=== PATIENT | female | born 1985 | race Caucasian/White ===

== ENCOUNTER 2025-05-06 14:00 | Emergency (ER) | payer BC, SELFPAY ==
[2025-05-06 14:08] VITALS: BP 131/84
[2025-05-06 14:09] VITALS: BMI 43.7
--- NOTE | 2025-05-06 15:01 | ED.GENMED ---
History of Present Illness
General
Chief Complaint: Rabies
Source: patient
Exam Limitations: none
Time Seen by Provider: 05/06/25 14:29
Nursing documentation reviewed up to this point in time: agreed with
History of Present Illness
History of Present Illness:
39 y/o F
h/o remote thyroid cancer, s/p thyroidectoy radiation
here after finding bat in house 4 nights ago
they have not located bat
called health department and were sent for rabies series
entire family here
no one symptomatic
no known exposure
Past History
Past History
ED Past Medical History: Cancer
ED Past Surgical History: Other (thyroidectomy)
Social History
Tobacco: Non-smoker
Alcohol: None
Drug: None
Personal:
Living: with family
Review of Systems
Review of Systems
Allergies reviewed?: Yes
All Other Systems: Not applicable
Phy Exam
Physical Exam
Physical Exam:
GENERAL: Alert , in no apparent distress
CARDIAC: Regular rate and rhythm .
LUNGS: Clear breath sounds bilaterally, no acute respiratory distress, no wheezes/rales/rhonchi
NEUROLOGICAL: Alert and oriented, no focal neuro deficits
PSYCH: Normal and appropriate interaction.
Course
Orders/Labs/Results
Orders:
Orders
05/06/25 14:55
Rabies Immune Globulin/Pf [HyperRAB] 2,684 unit IM NOW STA
05/06/25 15:00
Rabies Vaccine (Pcec)/Pf [Rabavert Rabies Vacc W-Diluent] 2.5 unit IM .ONCE ONE
Vital Signs
Initial and Last Documented VS:
Initial Vital Signs
Temp
36.9 C
05/06/25 14:06
Last Documented Vital Signs
Temp Pulse Resp BP Pulse Ox
36.9 C 84 18 131/84 95
05/06/25 14:06 05/06/25 14:08 05/06/25 14:08 05/06/25 14:08 05/06/25 15:07
MDM/Problems Addressed
Differential Diagnosis Includes:
rabies exposure
MDM/Problems Addressed:
39 y/o F
bat found in house
no known contact with bat
cdalled health department and insturcted to come for rabies series
no one symptomatic
*Pulse Oximetry
SaO2: 95
Oxygen Mode of Delivery: Room air
Patient hypoxic: no (95)
*Critical Care Note
Total Time (30-74mins, 75-104mins- exclusive of procedures): Not Applicable
ED Attending Note
-
Portions of this chart may have been created with voice recognition software.� Occasional wrong word or��sound alike� substitutions may have occurred due to the inherent limitations of voice recognition software.
Discharge Plan
Departure
Patient Disposition: Home (Routine Discharge)
Date of Disposition: 05/06/25
Time of Disposition: 15:05
Patient with high blood pressure during this ER visit?: No
Condition: Fair
Covid-19: Not Applicable
Discharge Problem:
Need for post exposure prophylaxis for rabies
Instructions: Rabies Vaccine CDC Vaccine Information Statement (VIS)
Prescriptions:
New
rabies vacc,human diploid (PF) 2.5 unit recon soln
See Rx Instructions .ROUTE .COMPLEX Qty: 3 0RF
Rx Instructions:
2.5 unit intramuscularly on 05/09, 05/13, 05/20
Referrals:
Lizette Torres CRNP [Family Provider, Family Practice]
Stand Alone Forms: Rabies Vaccine Post Exp Dosing
Activity Restrictions/Additional Instructions:
RABIES SERIES WAS INITIATED
RETURN ON DATES 05/09 TO THE ER
OTHER DATES 05/13, 05/20 CAN BE AT THE [facility]
Interventions
Interventions:
*Risk Screen - Suicide Last Done: 05/06/25 14:06
*General Assessment Last Done: 05/06/25 14:06
Discharge Date and Time
Print Language: UPPER SORBIAN
[2025-05-06] MEDS: RABAVERT RABIES VACC W-DILUENT 2.5 UNIT IM (15:41)
== END 2025-05-06 16:50 | disposition home or self-care (01) ==
LOC: EMR 14:00
PROVIDERS: EMERGENCY PHYSICIAN Student in an Organized Health Care Education/Training Program; FAMILY PHYSICIAN Registered Nurse
DX: Z23 Encounter for immunization (principal); Z20.3 Contact with and (suspected) exposure to rabies; Z29.14 Encounter for prophylactic rabies immune globulin; Z85.850 Personal history of malignant neoplasm of thyroid; Z92.3 Personal history of irradiation
CPT/HCPCS: 99281; 90471; 96372; 90375; 90675

== ENCOUNTER 2025-05-09 09:46 | Emergency (ER) | payer BC, SELFPAY ==
[2025-05-09 09:55] VITALS: BP 129/86
--- NOTE | 2025-05-09 10:15 | ED.GENMED ---
History of Present Illness
General
Chief Complaint: Rabies
Source: patient
Exam Limitations: none
Time Seen by Provider: 05/09/25 09:59
Nursing documentation reviewed up to this point in time: agreed with
History of Present Illness
History of Present Illness:
39 y/o F
here for 2nd rabies vaccine
found bat in the house
no side effects from first shot
feeling well
denies fever, neck pain, headache
Past History
Past History
ED Past Medical History: Cancer
ED Past Surgical History: Other (thyroidectomy)
Social History
Tobacco: Non-smoker
Alcohol: None
Drug: None
Personal:
Living: with family
Review of Systems
Review of Systems
Allergies reviewed?: Yes
All Other Systems: Not applicable
Phy Exam
Physical Exam
Physical Exam:
GENERAL: Alert , in no apparent distress
CARDIAC: Regular rate and rhythm .
LUNGS: Clear breath sounds bilaterally, no acute respiratory distress, no wheezes/rales/rhonchi
SKIN: Warm and dry, skin intact.
neuro: no deficits
PSYCH: Normal and appropriate interaction.
Course
Orders/Labs/Results
Orders:
Orders
05/09/25 10:15
Rabies Vaccine (Pcec)/Pf [Rabavert Rabies Vacc W-Diluent] 2.5 unit IM .ONCE ONE
Vital Signs
Initial and Last Documented VS:
Initial Vital Signs
Temp Pulse Resp BP Pulse Ox
36.9 C 84 16 129/86 97
05/09/25 09:55 05/09/25 09:55 05/09/25 09:55 05/09/25 09:55 05/09/25 09:55
Last Documented Vital Signs
Temp Pulse Resp BP Pulse Ox
36.9 C 84 16 129/86 97
05/09/25 09:55 05/09/25 09:55 05/09/25 09:55 05/09/25 09:55 05/09/25 10:20
MDM/Problems Addressed
Differential Diagnosis Includes:
rabies
MDM/Problems Addressed:
39 y/o F
here for 2nd rabies vaccine
*Pulse Oximetry
SaO2: 97
Oxygen Mode of Delivery: Room air
Patient hypoxic: no (97)
*Critical Care Note
Total Time (30-74mins, 75-104mins- exclusive of procedures): Not Applicable
ED Attending Note
-
Portions of this chart may have been created with voice recognition software.� Occasional wrong word or��sound alike� substitutions may have occurred due to the inherent limitations of voice recognition software.
Discharge Plan
Departure
Patient Disposition: Home (Routine Discharge)
Date of Disposition: 05/09/25
Time of Disposition: 10:19
Patient with high blood pressure during this ER visit?: No
Condition: Fair
Covid-19: Not Applicable
Discharge Problem:
Need for post exposure prophylaxis for rabies
Instructions: Rabies
Prescriptions:
No Action
rabies vacc,human diploid (PF) 2.5 unit recon soln
See Rx Instructions .ROUTE .COMPLEX Qty: 3 0RF
Rx Instructions:
2.5 unit intramuscularly on 05/09, 05/13, 05/20
Referrals:
UNKNOWN - PT DOES,NOT KNOW [Family Provider]
Stand Alone Forms: Rabies Vaccine Post Exp Dosing
Activity Restrictions/Additional Instructions:
RETURN TO [facility] ON 05/13 AND 05/20
Interventions
Interventions:
*Risk Screen - Suicide Last Done: 05/09/25 10:30
*General Assessment Last Done: 05/09/25 10:30
*Neglect/Abuse Screening Last Done: 05/09/25 10:30
*Nursing Disposition Last Done: 05/09/25 10:57
Discharge Date and Time
Discharge Date/Time: 05/09/25 10:58
Print Language: ARABIC
[2025-05-09] MEDS: RABAVERT RABIES VACC W-DILUENT 2.5 UNIT IM (10:28)
== END 2025-05-09 10:58 | disposition home or self-care (01) ==
LOC: EMR 09:46
PROVIDERS: EMERGENCY PHYSICIAN Emergency Medicine
DX: Z20.3 Contact with and (suspected) exposure to rabies (principal); Z23 Encounter for immunization
CPT/HCPCS: 90471; 99281; 90675

== ENCOUNTER 2025-05-13 17:30 | Emergency (ER) | payer BC, SELFPAY ==
[2025-05-13 17:42] VITALS: BP 158/104
--- NOTE | 2025-05-13 18:07 | ED.GENMED ---
History of Present Illness
General
Chief Complaint: Rabies
Time Seen by Provider: 05/13/25 17:51
History of Present Illness
History of Present Illness:
39-year-old female returns emergency department for third round of rabies series, no complaints
Past History
Past History
ED Past Medical History: Cancer
ED Past Surgical History: Other (thyroidectomy)
Social History
Tobacco: Non-smoker
Alcohol: None
Drug: None
Personal:
Living: with family
Review of Systems
Review of Systems
Allergies reviewed?: Yes
All Other Systems: ROS reviewed and negative except as documented in HPI and ROS
Phy Exam
Physical Exam
Physical Exam:
GEN: Well appearing, NAD, WDWN
HEENT: Oral mucosa moist, no scleral icterus
Cardiac: Regular rate
Lung: No respiratory distress, no tachypnea
MSK: No gross deformity or injuries
Skin: Good color, no pallor or jaundice, no rashes
Neuro: AO x3, moves all extremities freely
Psych: Calm, cooperative
Course
Orders/Labs/Results
Orders:
Orders
05/13/25 18:15
Rabies Vaccine (Pcec)/Pf [Rabavert Rabies Vacc W-Diluent] 2.5 unit IM .ONCE ONE
Vital Signs
Initial and Last Documented VS:
Initial Vital Signs
Temp Pulse Resp BP Pulse Ox
98.2 F 84 18 158/104 96
05/13/25 17:42 05/13/25 17:42 05/13/25 17:42 05/13/25 17:42 05/13/25 17:42
Last Documented Vital Signs
Temp Pulse Resp BP Pulse Ox
98.2 F 84 18 158/104 96
05/13/25 17:42 05/13/25 17:42 05/13/25 17:42 05/13/25 17:42 05/13/25 18:08
*Pulse Oximetry
SaO2: 96
Oxygen Mode of Delivery: Room air
Patient hypoxic: no
*Critical Care Note
Total Time (30-74mins, 75-104mins- exclusive of procedures): Not Applicable
ED Attending Note
-
Portions of this chart may have been created with voice recognition software.� Occasional wrong word or��sound alike� substitutions may have occurred due to the inherent limitations of voice recognition software.
Discharge Plan
Departure
Patient Disposition: Home (Routine Discharge)
Date of Disposition: 05/13/25
Time of Disposition: 18:07
Patient with high blood pressure during this ER visit?: No
Discharge Problem:
Need for post exposure prophylaxis for rabies
Prescriptions:
No Action
rabies vacc,human diploid (PF) 2.5 unit recon soln
See Rx Instructions .ROUTE .COMPLEX Qty: 3 0RF
Rx Instructions:
2.5 unit intramuscularly on 05/09, 05/13, 05/20
Referrals:
Lizette Torres CRNP [Family Provider, Family Practice]
Activity Restrictions/Additional Instructions:
Return 05/20 for final vaccine
Interventions
Interventions:
*Risk Screen - Suicide Last Done: 05/13/25 17:43
*General Assessment Last Done: 05/13/25 17:43
*Neglect/Abuse Screening Last Done: 05/13/25 17:43
*ED COVID-19 Vaccine History Last Done: 05/13/25 17:43
*Nursing Disposition Last Done: 05/13/25 18:49
Discharge Date and Time
Discharge Date/Time: 05/13/25 18:49
Print Language: BELGIAN
[2025-05-13] MEDS: RABAVERT RABIES VACC W-DILUENT 2.5 UNIT IM (18:33)
== END 2025-05-13 18:49 | disposition home or self-care (01) ==
LOC: EMR 17:30
PROVIDERS: EMERGENCY PHYSICIAN Emergency Medicine; FAMILY PHYSICIAN Registered Nurse
DX: Z20.3 Contact with and (suspected) exposure to rabies (principal); Z23 Encounter for immunization
CPT/HCPCS: 99281; 90471; 90675

== ENCOUNTER 2025-05-20 18:37 | Emergency (ER) | payer BC, SELFPAY ==
[2025-05-20 18:49] VITALS: BP 122/80
[2025-05-20] MEDS: RABAVERT RABIES VACC W-DILUENT 2.5 UNIT IM (20:15)
--- NOTE | 2025-05-20 21:41 | ED.GENMED ---
History of Present Illness
General
Chief Complaint: Rabies
Source: patient
Exam Limitations: none
Time Seen by Provider: 05/20/25 18:59
Nursing documentation reviewed up to this point in time: agreed with
History of Present Illness
History of Present Illness:
Patient is a 39-year-old female who presents to the emergency department for rabies vaccination. She states that she encountered a bat flying around her upstairs hallway in the middle of the night 2 weeks ago. There was no known bite or scratch
however they were unable to trap the bat for rabies testing. They decided to proceed with rabies vaccination. Patient has already received the immunoglobulin and 3 doses of the rabies vaccination. She has tolerated these well.
She presents today for final dose of rabies vaccination series. No other concerns.
No hx of previous rabies vaccination series.
Past History
Past History
ED Past Medical History: Cancer
ED Past Surgical History: Other (thyroidectomy)
Social History
Tobacco: Non-smoker
Alcohol: None
Drug: None
Personal:
Living: with family
Review of Systems
Review of Systems
Allergies reviewed?: Yes
All Other Systems: ROS reviewed and negative except as documented in HPI and ROS
Phy Exam
Physical Exam
Physical Exam:
Vitals: Patient's vital signs are stable. Afebrile
General: Patient is well appearing, no acute distress
Skin: Warm and dry, no rashes or lesions
Head: Normocephalic, atraumatic
Throat: Protecting airway
Neck: Normal ROM
Cardiac: Regular rate
Pulm: No apparent respiratory distress
Abdomen: Nondistended
Extremities: No evidence of cyanosis or edema
Neuro: Grossly intact
Psychiatric: Normal affect.
Course
Orders/Labs/Results
Orders:
Orders
05/20/25 19:30
Rabies Vaccine (Pcec)/Pf [Rabavert Rabies Vacc W-Diluent] 2.5 unit IM .ONCE ONE
Vital Signs
Initial and Last Documented VS:
Initial Vital Signs
Temp Pulse Resp BP Pulse Ox
98.2 F 80 16 122/80 98
05/20/25 18:49 05/20/25 18:49 05/20/25 18:49 05/20/25 18:49 05/20/25 18:49
Last Documented Vital Signs
Temp Pulse Resp BP Pulse Ox
98.2 F 80 16 122/80 98
05/20/25 18:49 05/20/25 18:49 05/20/25 18:49 05/20/25 18:49 05/20/25 21:41
MDM/Problems Addressed
Differential Diagnosis Includes:
Not limited to: Need for rabies prophylaxis, etc.
MDM/Problems Addressed:
39 y.o F presenting for 4th rabies vaccination. There was a bat exposure in the home approximately two weeks however no known bite or scratch. Patient has received the immunoglobulin and first 3 doses of rabies vaccine without any complications or
reactions.
Vitals and physical exam as above.
4th dose of rabies vaccination administered in the emergency department today. Patient tolerated well. Discussed with patient that vaccination series is now complete. Return precautions discussed.
Chronic conditions affecting care:
N/A
Acute Exacerbation and/or Progression of Chronic Illness:
N/A
*Pulse Oximetry
SaO2: 98
Oxygen Mode of Delivery: Room air
Patient hypoxic: no
*EKG
Interpreted by ED Provider?: NA
*Cube Cutter Interpretation
Rate: Cube Cutter- N/A
*Critical Care Note
Total Time (30-74mins, 75-104mins- exclusive of procedures): Not Applicable
ED Attending Note
-
Portions of this chart may have been created with voice recognition software.� Occasional wrong word or��sound alike� substitutions may have occurred due to the inherent limitations of voice recognition software.
Discharge Plan
Departure
Patient Disposition: Home (Routine Discharge)
Date of Disposition: 05/20/25
Time of Disposition: 19:50
Patient with high blood pressure during this ER visit?: No
Discharge Problem:
Rabies vaccine administered
Instructions: Rabies
Prescriptions:
No Action
rabies vacc,human diploid (PF) 2.5 unit recon soln
See Rx Instructions .ROUTE .COMPLEX Qty: 3 0RF
Rx Instructions:
2.5 unit intramuscularly on 05/09, 05/13, 05/20
Referrals:
Lizette Torres CRNP [Family Provider, Family Practice]
Stand Alone Forms: Rabies Vaccine Post Exp Dosing
Activity Restrictions/Additional Instructions:
RETURN TO THE EMERGENCY DEPARTMENT WITH ANY FEVERS, NEW RASH, ANY SIGNS OF A VACCINATION REACTION OR ANY OTHER CONCERNS
- You received the fourth and final dose of the rabies vaccination today in the emergency department.
- Follow-up with primary care as needed for further evaluation/management
Monitor your symptoms closely and return to the emergency department with any acute worsening/new symptoms or any other concerns
Interventions
Interventions:
*Risk Screen - Suicide Last Done: 05/20/25 18:50
*Neglect/Abuse Screening Last Done: 05/20/25 18:50
*ED- Fall Risk Assessment Last Done: 05/20/25 18:50
*Nursing Disposition Last Done: 05/20/25 20:29
Discharge Date and Time
Discharge Date/Time: 05/20/25 20:30
Print Language: SYRIAC
== END 2025-05-20 20:30 | disposition home or self-care (01) ==
LOC: EMR 18:37
PROVIDERS: EMERGENCY PHYSICIAN Emergency Medicine; FAMILY PHYSICIAN Registered Nurse
DX: Z20.3 Contact with and (suspected) exposure to rabies (principal); Z23 Encounter for immunization
CPT/HCPCS: 99281; 90471; 90675